=== PATIENT | male | born 2000 | race Caucasian/White ===

== ENCOUNTER 2019-05-10 15:17 | Emergency (ER) | payer BC ==
[~2019-05-10] VITALS: Ht 185.4 cm; Wt 72.7 kg
[2019-05-10 15:28] VITALS: TEMP 98.4
[2019-05-10] MEDS ORDERED: ASPIRIN 81M81 MG/TA2 PO (16:41)
[2019-05-10] MEDS ORDERED: METOPROLOL TART75 MG PO (16:41)
[2019-05-10] MEDS ORDERED: BETAPACE 80MG80 MG PO (16:42)
[2019-05-10] MEDS ORDERED: BETAPACE 120MG120 MG PO (16:42)
[2019-05-10 16:53] LABS: BASO % 0.2 % (0.0-2.0); EOS # 0.1 (0.0-0.7); EOS % 0.9 % (0-4.0); GRAN # 7.8 (1.4-6.5); GRAN % 70.3 % (42.2-75.2); HEMATOCRIT 43.7 % (36.0-47.0); HEMOGLOBIN 14.7 g/dl (12.5-16.1); LYMPH # 1.8 (1.2-3.4); LYMPH % 16.2 % (20.0-51.0); MEAN CELL VOLUME 91 fl (80.0-95.0); MEAN CORPUSCULAR HEMOGLOBIN 31 pg (26.0-32.0); MEAN CORPUSCULAR HGB CONC 34 g/dl (33.0-37.0); MEAN PLATELET VOLUME 9.9 fl (7.4-10.4); MONO # 1.3 (0.1-0.6); MONO % 12.1 % (1.7-9.3); PLATELET COUNT 236 K/mm3 (130-400); RED BLOOD COUNT 4.82 M/mm3 (4.20-5.60)
[2019-05-10 17:03] LABS: ALANINE AMINOTRANSFERASE 19 U/L (21-72); ALBUMIN 4.4 gm/dL (3.5-5.0); ALKALINE PHOSPHATASE 77 U/L (50-136); ANION GAP 10 mmol/L (7-16); AST,SGOT 22 U/L (15-37); BILIRUBIN,TOTAL 0.9 mg/dL (0.0-1.0); BLOOD UREA NITROGEN 17 mg/dL (9-20); C-REACTIVE PROTEIN 5.9 mg/dL (0.0-0.9); CALCIUM 9.3 mg/dL (8.4-10.2); CARBON DIOXIDE 29 mmol/L (22-30); CHLORIDE 102 mmol/L (98-107); CREATININE, serum 0.68 (0.66-1.25); GLUCOSE 90 mg/dL (74-106); SODIUM 141 mmol/L (137-145); TOTAL PROTEIN 7.3 gm/dL (6.4-8.2)
[2019-05-10 17:24] LABS: TROPONIN-I < 0.012 ng/mL (0.000-0.035)
[2019-05-10] MEDS ORDERED: MITIGARE0.6 MG PO (18:21)
[2019-05-10] MEDS ORDERED: ZOFRAN ODT4 MG PO (18:21)
[2019-05-10 18:45] VITALS: BP 104/60; PULSE 66
== END 2019-05-10 18:45 | disposition home or self-care (01) ==
LOC: COL.ER 15:17
PROVIDERS: Emergency Medicine
DX: I30.9 Acute pericarditis, unspecified (principal); Z79.82 Long term (current) use of aspirin

== ENCOUNTER 2020-02-20 18:19 | Emergency (ER) | payer BC ==
[~2020-02-20] VITALS: Ht 185.4 cm; Wt 72.7 kg
[~2020-02-20 18:19] MED LIST: ASPIRIN 81M81 MG/TA2 PO; BETAPACE 120MG120 MG PO; BETAPACE 80MG80 MG PO; METOPROLOL TART75 MG PO; MITIGARE0.6 MG PO; ZOFRAN ODT4 MG PO
[2020-02-20 18:42] VITALS: TEMP 97.9
[2020-02-20 19:29] LABS: BASO % 0.3 % (0.0-2.0); EOS # 0.1 (0.0-0.7); EOS % 0.8 % (0-4.0); GRAN # 7.9 (1.4-6.5); GRAN % 72.1 % (42.2-75.2); HEMATOCRIT 42.2 % (42.0-52.0); HEMOGLOBIN 14.3 g/dl (13.5-18.0); LYMPH # 1.7 (1.2-3.4); LYMPH % 15.9 % (20.0-51.0); MEAN CELL VOLUME 90 fl (80.0-100.0); MEAN CORPUSCULAR HEMOGLOBIN 31 pg (27.0-31.0); MEAN CORPUSCULAR HGB CONC 34 g/dl (33.0-37.0); MEAN PLATELET VOLUME 10.4 fl (7.4-10.4); MONO # 1.1 (0.1-0.6); MONO % 10.4 % (1.7-9.3); PLATELET COUNT 233 K/mm3 (130-400); RED BLOOD COUNT 4.69 M/mm3 (4.20-5.60); REDCELL DISTRIBUTION WIDTH-CV 12.5 % (11.5-14.5)
[2020-02-20 19:31] LABS: ALANINE AMINOTRANSFERASE 16 U/L (4-49); ALBUMIN 4.3 gm/dL (3.5-5.0); ALKALINE PHOSPHATASE 75 U/L (50-136); ANION GAP 9 mmol/L (7-16); AST,SGOT 23 U/L (15-37); BILIRUBIN,TOTAL 0.6 mg/dL (0.0-1.0); BLOOD UREA NITROGEN 22 mg/dL (9-20); C-REACTIVE PROTEIN 5.6 mg/dL (0.0-0.9); CALCIUM 9.2 mg/dL (8.4-10.2); CARBON DIOXIDE 28 mmol/L (22-30); CHLORIDE 102 mmol/L (98-107); CREATINE KINASE 35 U/L (55-170); CREATININE, serum 0.78 (0.66-1.25); GLUCOSE 102 mg/dL (74-106); LIPASE 54 U/L (23-300); POTASSIUM 4.1 mmol/L (3.4-5.0); SODIUM 139 mmol/L (137-145); TOTAL PROTEIN 7.2 gm/dL (6.4-8.2)
[2020-02-20 19:45] LABS: TROPONIN-I < 0.012 ng/mL (0.000-0.035)
[2020-02-20 20:24] LABS: ERYTHROCYTE SEDIMENTATION RATE 4 mm/hr (0-15)
[2020-02-20] MEDS ORDERED: MEDROL 4MG DOSPA4 MG PO (22:13)
[2020-02-20 22:24] VITALS: BP 118/81; PULSE 61
== END 2020-02-20 22:26 | disposition home or self-care (01) ==
LOC: COL.ER 18:19
PROVIDERS: Emergency Medicine
DX: R07.81 Pleurodynia (principal); I49.3 Ventricular premature depolarization; Z86.79 Personal history of other diseases of the circulatory system; Z95.0 Presence of cardiac pacemaker; Z79.82 Long term (current) use of aspirin
CPT/HCPCS: J1885; J7030; J7512; Q9967

== ENCOUNTER 2020-08-22 16:57 | Outpatient (RCR) | payer BC ==
[~2020-08-22 16:57] MED LIST changes: +MEDROL 4MG DOSPA4 MG PO
== END 2020-08-27 16:44 | disposition home or self-care (01) ==
LOC: COL.CR 16:57
DX: Z48.812 Encounter for surgical aftercare following surgery on the circulatory system (principal); Z94.1 Heart transplant status